=== PATIENT | female | born 1995 | race Caucasian/White ===

== ENCOUNTER → 2017-06-06 | Outpatient (CLI) | payer BC ==
[2017-06-06 12:08] LABS: Cholesterol 185 mg/dL (<200); HDL Cholesterol 57 mg/dL (40-60)
[2017-06-06 17:29] LABS: Clam IgE <0.10 kU/L; Egg White IgE <0.10 kU/L; Peanut IgE <0.10 kU/L; Scallop IgE <0.10 kU/L; Soybean IgE <0.10 kU/L
[2017-06-06 17:33] LABS: Alternaria alternata IgE <0.10 kU/L; Aspergillus fumagatus IgE <0.10 kU/L; Cat Epith & Dander IgE <0.10 kU/L; Cladosporian herbarum IgE <0.10 kU/L; Maple (Box Elder) IgE <0.10 kU/L; Orchard Grs(Cocksfoot) IgE <0.10 kU/L; Ragweed,Common IgE <0.10 kU/L
[2017-06-09 04:54] LABS: EBV - EA (IgG) <5.0 U/mL (<9.0); EBV - EBNA (IgG) 41.9 U/mL (<18.0); EBV - VCA IgM <10.0 U/mL (<36.0)
[2017-06-10 04:26] LABS: Mycoplasma IgM Antibody 1.55 INDEX (<=0.90)
== END ==
LOC: LABWHC1 11:33
PROVIDERS: ATTEND Pediatrics Adolescent Medicine
DX: J31.0 Chronic rhinitis (principal); R53.83 Other fatigue; Z13.220 Encounter for screening for lipoid disorders; Z13.21 Encounter for screening for nutritional disorder
CPT/HCPCS: 36415; 80061; 82306; 82785; 86003; 86663; 86664; 86665; 86738

== ENCOUNTER → 2019-05-31 | Outpatient (CLI) | payer BC ==
--- NOTE | 2019-06-01 13:00 | ECHOF ---
Referral Reason:Z82.41 Family history of sudden cardiac MEASUREMENTS -------- HEIGHT: 170.2 cm WEIGHT: 90.7 kg BP: IVSd: 0.9 cm (0.6 - 1.1) LVIDd: 4.9 cm (3.9 - 5.3) LVPWd: 0.7 cm (0.6 - 1.1) IVSs: 1.1 cm LVIDs: 3.3 cm LVPWs: 1.0 cm LA Diam: 2.7 cm (2.7 - 3.8) RVIDd: 2.0 cm (< 3.3) LAESV Index (A-L): 10.48 ml/m Ao Diam: 2.6 cm (2.0 - 3.7) LA Diam: 2.7 cm (2.7 - 3.8) AV Cusp: 1.7 cm (1.5 - 2.6) EPSS: 0.5 cm MV E Goran: 0.75 m/s MV DecT: 241 ms MV A Goran: 0.53 m/s MV E/A Ratio: 1.42 RAP: 5.00 mmHg RVSP: 19.39 mmHg MV EF SLOPE: 99.72 mm/s (70 - 150) MV EXCURSION: 22.13 mm (> 18.000) FINDINGS -------- Sinus rhythm. This was a technically good study. LV size, wall thickness and systolic function are normal, with an EF greater than 55%. The left alexsander tricular size is normal. The diastolic filling pattern is normal for the age of the patient 6.84. The right ventricle is normal in size. The left atrial size is normal. The right atrial size is normal. The aortic valve is trileaflet, and appears structurally normal. No aortic stenosis or regurgitation. Mild mitral regurgitation is present. Mild tricuspid regurgitation present. There is no evidence of pulmonary hypertension. There is no pulmonic regurgitation present. The aortic root size is normal. There is no pericardial effusion. CONCLUSIONS -------- 1. Sinus rhythm. 2. This was a technically good study. 3. LV size, wall thickness and systolic function are normal, with an EF greater than 55%. 4. The left ventricular size is normal. 5. The diastolic filling pattern is normal for the age of the patient 6.84 6. The right ventricle is normal in size. 7. The left atrial size is normal. 8. The right atrial size is normal. 9. The aortic valve is trileaflet, and appears structurally normal. No aortic stenosis or regurgitati on. 10. Mild mitral regurgitation is present. 11. Mild tricuspid regurgitation present. 12. There is no evidence of pulmonary hypertension. 13. There is no pulmonic regurgitation present. 14. The aortic root size is normal. 15. There is no pericardial effusion. DIESEL ENGINE OPERATOR: Marisel Owen RDCS
== END | disposition home or self-care (01) ==
LOC: RADECHMAIN 11:19
PROVIDERS: ATTEND Pediatrics Adolescent Medicine
DX: Z13.6 Encounter for screening for cardiovascular disorders (principal); I08.1 Rheumatic disorders of both mitral and tricuspid valves; Z82.41 Family history of sudden cardiac death
CPT/HCPCS: 93306